=== PATIENT | female | born 1935 | race Caucasian/White ===

== ENCOUNTER → 2016-09-10 | Outpatient (CLI) | payer OTHER ==
[~2016-09-10] VITALS: Ht 142.2 cm; Wt 56.7 kg
[~2016-09-10] MED LIST: ASA81BEC PO; BISOPROLOL FUMA10 MG PO; BYSTOLIC10 MG; COZAAR 50 MG TA50 M2 PO; COZAAR100 MG PO; K-DUR 20 MEQ T20 MEQ PO; KLOR-CON 1010 MEQ PO; MAGNESIUM400 MG PO; MOBIC15 MG PO; NORVASC10 MG PO; PERCOCET 5-3251 EACH PO; PRINIVIL20 MG PO; ROBAXIN500 MG PO; TENORMIN50 MG PO; ZIAC 5-6.25 MG1 EACH PO
--- NOTE | ~2016-09-10 | HPC ---
[facility] [address] [place] [address] PAIN MANAGEMENT CONSULTATION Name: SARAH PÉREZ Room #: REG [facility] James.#: [id number] Admission: 09/10/16 Attend Phys: Haim Monte DO Discharge: Date of : 35 Report #: [id number] THIS REPORT FOR: //name// CC: Keshawn Ureña MD [facility] Neal Perez DATE OF SERVICE: 09/10/2016 HISTORY OF PRESENT ILLNESS: The patient is a very pleasant 81-year-old female, who was seen in consultation at the request of Dr. Dawkins for evaluation of pain in left neck, arm and upper back with paresthesia in the left hand. The patient notes she had prior symptoms about 3 years ago, they are treated conservatively. Ultimately, symptoms recur 2-3 months ago without antecedent trauma and overuse. She notes pain is periodic, burning, shooting and sharp, rates anywhere from 1-10 on a 0-10 visual analog scale. She tried hydrocodone and this caused nausea, vomiting and vertigo/dizziness. Currently taking tramadol with some efficacy and ibuprofen over the counter. She notes medications and heating pad do afford some relief. REVIEW OF SYSTEMS: Complete review of systems attached to chart and gone over with the patient, is , seen in the company of her who is supportive. Does not smoke, drink alcohol to excess. History of hypertension treated with amlodipine, atenolol and losartan. Otherwise, she has enjoyed remarkably good health. Prior colon surgery in 2000 and cholecystectomy in 1996. She is retired nanny, has been retired for 15 years. Pain impact score averages about 5 for all indices queried. The only other history is the prior cervical radicular symptoms about three years ago. DIAGNOSTIC STUDIES: Include MRI of the left shoulder from 03/06/2013, at that time, there was probable degenerative signal within the superior glenoid labrum, but no discrete tear was noted. There are no diagnostic studies of the cervical spine. PHYSICAL EXAMINATION: GENERAL: Reveals a pleasant 81-year-old female, 5 feet 8 and 125 pounds, BMI is 28 kilograms per meter squared, blood pressure is 136/76, pulse 73 and respirations 14. NEUROLOGIC: Cranial 2-12 are grossly intact. HEENT: Pupils are equal and reactive to light and accommodation. Extraocular muscles are intact. She has some subjective vertigo. No nystagmus is noted. Thyroid is enlarged, no nodules are noted. NECK: Cervical range of motion is limited with grossly positive limits radiating to left. Hand grasp is modestly diminished on the left compared to the right, subjective paresthesia in the left hand. Peripheral pulses are good. [address] [address] PAIN MANAGEMENT CONSULTATION Name: SARAH PÉREZ Room #: REG [facility] Dowell#: [id number] Admission: 09/10/16 Attend Phys: Haim Monte DO Discharge: Date of : 35 Report #: [id number] Tinel's is negative. Deep tendon reflexes are slightly diminished on left for biceps and brachioradialis. HEART: Regular and rhythmical with a 1-2/6 systolic ejection murmur. LUNGS: Clear to auscultation. ABDOMEN: Unremarkable. EXTREMITIES: Lower extremity strength is symmetric. Gait is tandem. Lower extremity strength is preserved. Skin integument is intact. ASSESSMENT: Symptomatic cervical radiculopathy by clinical exam, history of hypertension, well controlled with current medications. RECOMMENDATION: We will seek authorization for fluoroscopic-guided cervical epidural injection at C7-T1. We will start the patient on Meloxicam 15 mg 1 a day. Discontinue [id number]-[id number] anti-inflammatories. Continued tramadol and/or Tylenol for pain. If the interventional therapy does not afford dramatic relief, we will need an MRI of the cervical spine to rule out any surgical correctable pathology. Thank you for allowing me to participate in this patient's care. I will keep you abreast of her progress. <ELECTRONICALLY SIGNED> By: Haim Monte DO 09/16/16 1031 [id number] Haim Monte DO /nt
[2016-09-10 11:31] VITALS: BP 156/76
== END | disposition home or self-care (01) ==
LOC: PAIN 07:22
DX: M54.12 Radiculopathy, cervical region (principal); I10 Essential (primary) hypertension; Z90.49 Acquired absence of other specified parts of digestive tract

== ENCOUNTER 2016-09-17 09:20 | Emergency (ER) | payer OTHER ==
[~2016-09-17] VITALS: Ht 152.4 cm; Wt 56.7 kg
--- NOTE | ~2016-09-17 | EKG ---
[address] [place] [employer] [place] [address] ELECTROCARDIOGRAM REPORT Name: BETOSARAH Sánchez [facility] [id number] Admission: 09/17/16 Attend Phys: Discharge: 09/17/16 Date of : 35 Report #: [id number] THIS REPORT FOR: //name// [facility] ED Test Date: 2016-09-17 Test Time: 09:26:51 Pat Name: SARAH PÉREZ Department: Room: Gender: F Hypertrichologist: [id number] : 1935 Requested By: Rod De La Cruz Order Number: [id number] MD: Ashutosh Meneses Measurements Intervals [place] Rate: 83 P: 59 ID: [id number] QRS: -16 QRSD: 86 T: 50 QT: 347 QTc: 408 Interpretive Statements Sinus rhythm Left ventricular hypertrophy No previous ECG available for comparison Electronically Signed On 09-17-2016 16:47:25 [employer] by Ashutosh Meneses [email or web address] <ELECTRONICALLY SIGNED> By: Ashutosh Meneses MD 09/17/16 1647 0926 09 Ashutosh Meneses MD /CONRADO
[~2016-09-17 09:20] MED LIST changes: -ROBAXIN500 MG PO
[2016-09-17 10:04] LABS: ABSOLUTE NEUTROPHILS 6.2 thou/uL (1.4-8.2); BASOPHILS 0.6 % (0.0-2.0); EOSINOPHILS 0.5 % (0.0-3.0); HEMATOCRIT 38.9 % (37.0-47.0); LYMPHOCYTES 11.4 % (24.0-44.0); MCH 30.2 pg (26.0-34.0); MCHC 33.5 % (28.0-37.0); MCV 90.1 fL (80.0-100.0); MONOCYTES 5.1 % (1.0-8.0); PLATELET COUNT 258 thou/uL (150-400); POLYS 82.4 % (36.0-66.0); RBC 4.32 mil/uL (4.20-5.00); RDW 13.7 % (10.5-14.5); WBC 7.5 thou/uL (4.0-11.0)
[2016-09-17 10:05] LABS: MANUAL DIFF NO
[2016-09-17 10:08] LABS: ANION GAP 11 mmol/L (7-16); BUN 13 mg/dL (7-18); CALCIUM 9.2 mg/dL (8.5-10.1); CHLORIDE 105 mmol/L (98-107); CO2 25 mmol/L (21-32); GLUCOSE 138 mg/dL (70-99); POTASSIUM 3.5 mmol/L (3.5-5.1); SODIUM 141 mmol/L (136-145)
[2016-09-17 10:22] LABS: ALBUMIN 3.7 g/dL (3.4-5.0); ALKALINE PHOSPHATASE 59 U/L (46-116); MAGNESIUM 1.7 mg/dL (1.8-2.4); NT-PRO BRAIN NAT PEPTIDE 416 pg/mL (<300); SGOT 13 U/L (15-37); SGPT 20 U/L (30-65); TOTAL BILIRUBIN 0.5 mg/dL (<0.1-1.0); TOTAL PROTEIN 7.2 g/dL (6.4-8.2); TROPONIN-I < 0.04 ng/mL (<0.04-0.07)
[2016-09-17] MEDS ORDERED: ROBAXIN500 MG PO (10:44)
== END 2016-09-17 11:11 | disposition home or self-care (01) ==
LOC: ER 09:20
PROVIDERS: Emergency Medicine
DX: R00.2 Palpitations (principal); M43.6 Torticollis; M79.602 Pain in left arm; Z88.5 Allergy status to narcotic agent; Z91.018 Allergy to other foods

== ENCOUNTER → 2017-03-25 | Outpatient (CLI) | payer OTHER ==
[~2017-03-25] MED LIST changes: +ROBAXIN500 MG PO
[2017-03-25 08:31] LABS: CREATININE 0.9 mg/dL (0.6-1.0)
== END ==
LOC: CAT 07:32
PROVIDERS: Family Medicine
DX: I72.2 Aneurysm of renal artery (principal); D17.71 Benign lipomatous neoplasm of kidney; G31.9 Degenerative disease of nervous system, unspecified

== ENCOUNTER 2017-05-22 15:08 | Emergency (ER) | payer OTHER ==
[~2017-05-22] VITALS: Ht 144.8 cm; Wt 54.4 kg
== END 2017-05-22 17:16 | disposition home or self-care (01) ==
LOC: ER 15:08
DX: S62.307A Unspecified fracture of fifth metacarpal bone, left hand, initial encounter for closed fracture (principal); I72.9 Aneurysm of unspecified site; Z90.49 Acquired absence of other specified parts of digestive tract; Z91.018 Allergy to other foods; W01.0XXA Fall on same level from slipping, tripping and stumbling without subsequent striking against object, initial encounter; Y93.89 Activity, other specified; Y92.89 Other specified places as the place of occurrence of the external cause; Y99.8 Other external cause status

== ENCOUNTER → 2017-09-02 | Outpatient (CLI) | payer OTHER ==
[~2017-09-02] MED LIST changes: +BYSTOLIC 5 MG5 M1 PO; +EDARBI80 MG PO; +TYLENOL325 MG PO
== END ==
LOC: RAD 08-27 07:46
DX: Z12.31 Encounter for screening mammogram for malignant neoplasm of breast (principal)

== ENCOUNTER 2018-02-28 19:29 | Inpatient (IN) | payer OTHER ==
[~2018-02-28] VITALS: Ht 149.9 cm; Wt 59.0 kg
[~2018-02-28 19:29] MED LIST changes: -BYSTOLIC 5 MG5 M1 PO; -EDARBI80 MG PO; -TYLENOL325 MG PO
[2018-02-28 19:45] VITALS: BP 116/72
[2018-02-28] MEDS ORDERED: EDARBI80 MG PO (19:52)
[2018-02-28] MEDS ORDERED: BYSTOLIC 5 MG5 M1 PO (19:52)
[2018-02-28 20:28] LABS: ABSOLUTE NEUTROPHILS 13.1 thou/uL (1.4-8.2); BASOPHILS 0.8 % (0.0-2.0); EOSINOPHILS 1.7 % (0.0-3.0); HEMATOCRIT 37.5 % (37.0-47.0); HEMOGLOBIN 12.7 gm/dL (12.0-15.0); LYMPHOCYTES 8.5 % (24.0-44.0); MCH 30.5 pg (26.0-34.0); MCHC 33.8 g/dL (28.0-37.0); MCV 90.1 fL (80.0-100.0); MONOCYTES 5.6 % (1.0-8.0); PLATELET COUNT 295 thou/uL (150-400); POLYS 83.4 % (36.0-66.0); RBC 4.16 mil/uL (4.20-5.00); RDW 13.8 % (10.5-14.5); WBC 15.7 thou/uL (4.0-11.0)
[2018-02-28 20:29] LABS: CALCIUM 9.1 mg/dL (8.5-10.1); CREATININE 1.1 mg/dL (0.6-1.0); POTASSIUM 3.9 mmol/L (3.5-5.1)
[2018-02-28 20:30] LABS: URINE BILIRUBIN NEGATIVE (Negative); URINE BLOOD 2+ (Negative); URINE CLARITY CLEAR; URINE COLOR YELLOW; URINE GLUCOSE-RANDOM* NEGATIVE (Negative); URINE KETONES NEGATIVE (Negative); URINE LEUKOCYTES-REFLEX NEGATIVE (Negative); URINE NITRITE-REFLEX NEGATIVE (Negative); URINE PROTEIN (DIPSTICK) NEGATIVE (Negative); URINE SPECIFIC GRAVITY >= 1.030 (1.005-1.035); URINE UROBILINOGEN 0.2 E.U./dl (0.2-1.0)
[2018-02-28 20:35] LABS: ALBUMIN 3.9 g/dL (3.4-5.0); TOTAL BILIRUBIN 0.3 mg/dL (<0.1-1.0); TOTAL PROTEIN 7.6 g/dL (6.4-8.2)
[2018-02-28 20:39] LABS: AMORPHOUS URATES Moderate /LPF (None Seen); BACTERIA-REFLEX None Seen /HPF (None Seen); CASTS None Seen /LPF (None Seen); MUCUS 4-6 Moderate strn/LPF (None Seen); SQUAMOUS 0-3 Few /LPF (0-3); URINE RBC 3-10 Few /HPF (0-2); URINE WBC-REFLEX 6-15 Few /HPF (0-5)
[2018-02-28 23:19] VITALS: BP 151/70
[2018-02-28 23:47] VITALS: BP 153/61
[2018-03-01 04:00] VITALS: BP 148/62
[2018-03-01 05:24] LABS: HEMATOCRIT 36.6 % (37.0-47.0); HEMOGLOBIN 12.2 gm/dL (12.0-15.0); MCH 30.2 pg (26.0-34.0); MCHC 33.2 g/dL (28.0-37.0); RBC 4.02 mil/uL (4.20-5.00); RDW 14.1 % (10.5-14.5); WBC 11.4 thou/uL (4.0-11.0)
[2018-03-01 05:40] LABS: CALCIUM 8.5 mg/dL (8.5-10.1); CREATININE 0.9 mg/dL (0.6-1.0); POTASSIUM 3.9 mmol/L (3.5-5.1)
[2018-03-01 07:20] VITALS: BP 118/56
[2018-03-01 15:45] VITALS: BP 121/55
[2018-03-01] MEDS ORDERED: TYLENOL325 MG PO (18:14)
[2018-03-01 18:44] VITALS: BP 121/55
== END 2018-03-01 19:30 | disposition home or self-care (01) | DRG 690 ==
LOC: ER 19:29 → EROBS 21:50 → 4W 21:50
PROVIDERS: Emergency Medicine; Nurse Practitioner Family
DX: N12 Tubulo-interstitial nephritis, not specified as acute or chronic (principal); N13.30 Unspecified hydronephrosis; D17.71 Benign lipomatous neoplasm of kidney; I10 Essential (primary) hypertension; Z98.62 Peripheral vascular angioplasty status; Z87.440 Personal history of urinary (tract) infections; Z90.49 Acquired absence of other specified parts of digestive tract; Z79.899 Other long term (current) drug therapy; Z88.5 Allergy status to narcotic agent; Z91.018 Allergy to other foods
CPT/HCPCS: 10045

== ENCOUNTER → 2018-03-08 | Outpatient (CLI) | payer OTHER ==
[~2018-03-08] MED LIST changes: +BYSTOLIC 5 MG5 M1 PO; +EDARBI80 MG PO; +TYLENOL325 MG PO
== END ==
LOC: CAT 09:17
DX: R10.9 Unspecified abdominal pain (principal)

== ENCOUNTER → 2018-09-02 | Outpatient (CLI) | payer OTHER | LOC: RAD 01:29 | DX: Z12.31 Encounter for screening mammogram for malignant neoplasm of breast (principal) ==

== ENCOUNTER 2019-03-03 20:39 | Emergency (ER) | payer OTHER ==
[~2019-03-03] VITALS: Ht 149.9 cm; Wt 59.0 kg
[2019-03-03 21:07] LABS: URINE BILIRUBIN NEGATIVE (Negative); URINE BLOOD 3+ (Negative); URINE CLARITY CLEAR; URINE COLOR YELLOW; URINE GLUCOSE-RANDOM* NEGATIVE (Negative); URINE KETONES NEGATIVE (Negative); URINE LEUKOCYTES-REFLEX NEGATIVE (Negative); URINE NITRITE-REFLEX NEGATIVE (Negative); URINE PROTEIN (DIPSTICK) 1+ (Negative); URINE SPECIFIC GRAVITY 1.025 (1.005-1.035); URINE UROBILINOGEN 0.2 E.U./dl (0.2-1.0)
[2019-03-03] MEDS ORDERED: CARDIZEM CD240 MG PO (21:12)
[2019-03-03] MEDS ORDERED: BYSTOLIC20 MG PO (21:12)
[2019-03-03] MEDS ORDERED: EDARBI80 MG PO (21:13)
[2019-03-03] MEDS ORDERED: ST. JOSEPH ASPI81 MG PO (21:14)
[2019-03-03 21:31] LABS: CASTS None Seen /LPF (None Seen); CRYSTALS None Seen /LPF (None Seen); SQUAMOUS 0-3 Few /LPF (0-3); URINE RBC >20 Many /HPF (0-2)
[2019-03-03 21:32] LABS: BACTERIA-REFLEX 1-9 Few /HPF (None Seen); URINE WBC-REFLEX 0-5 Rare /HPF (0-5)
[2019-03-03 21:36] LABS: ABSOLUTE NEUTROPHILS 10.1 thou/uL (1.4-8.2); BASOPHILS 0.6 % (0.0-2.0); EOSINOPHILS 0.9 % (0.0-3.0); HEMATOCRIT 40.4 % (37.0-47.0); HEMOGLOBIN 13.4 gm/dL (12.0-15.0); LYMPHOCYTES 9.3 % (24.0-44.0); MCH 29.9 pg (26.0-34.0); MCHC 33.1 g/dL (28.0-37.0); MCV 90.3 fL (80.0-100.0); MONOCYTES 6.8 % (1.0-8.0); PLATELET COUNT 268 thou/uL (150-400); POLYS 82.4 % (36.0-66.0); RBC 4.48 mil/uL (4.20-5.00); RDW 13.7 % (10.5-14.5); WBC 12.2 thou/uL (4.0-11.0)
[2019-03-03 21:59] LABS: CALCIUM 9.5 mg/dL (8.5-10.1); CREATININE 1.2 mg/dL (0.6-1.0)
[2019-03-03 22:07] LABS: ALBUMIN 3.9 g/dL (3.4-5.0); TOTAL BILIRUBIN 0.3 mg/dL (<0.1-1.0); TOTAL PROTEIN 7.8 g/dL (6.4-8.2)
[2019-03-03] MEDS ORDERED: TYLENOL EXTRA500 MG PO (23:30)
[2019-03-04 00:06] VITALS: BP 151/70
== END 2019-03-04 00:11 | disposition home or self-care (01) ==
LOC: ER 20:39
PROVIDERS: Emergency Medicine
DX: N28.89 Other specified disorders of kidney and ureter (principal); R10.9 Unspecified abdominal pain; Z88.5 Allergy status to narcotic agent; Z91.018 Allergy to other foods; Z90.49 Acquired absence of other specified parts of digestive tract; Z98.890 Other specified postprocedural states

== ENCOUNTER → 2019-09-04 | Outpatient (CLI) | payer OTHER ==
[~2019-09-04] MED LIST changes: +BYSTOLIC20 MG PO; +CARDIZEM CD240 MG PO; +ST. JOSEPH ASPI81 MG PO; +TYLENOL EXTRA500 MG PO
== END ==
LOC: RAD 13:00 → BC 20:48
DX: Z12.31 Encounter for screening mammogram for malignant neoplasm of breast (principal)

== ENCOUNTER → 2019-09-15 | Outpatient (CLI) | payer OTHER | LOC: CAT 08:18 | DX: N28.1 Cyst of kidney, acquired (principal); K76.89 Other specified diseases of liver; N26.1 Atrophy of kidney (terminal); N13.30 Unspecified hydronephrosis; I77.811 Abdominal aortic ectasia; I70.0 Atherosclerosis of aorta; Z98.890 Other specified postprocedural states; Z90.49 Acquired absence of other specified parts of digestive tract ==

== ENCOUNTER → 2019-12-27 | Outpatient (CLI) | payer OTHER | LOC: SJCVC 11:30 | DX: I10 Essential (primary) hypertension (principal); I47.1 Supraventricular tachycardia; F41.9 Anxiety disorder, unspecified; F32.9 Major depressive disorder, single episode, unspecified; E78.5 Hyperlipidemia, unspecified; Z90.49 Acquired absence of other specified parts of digestive tract; Z79.899 Other long term (current) drug therapy ==

== ENCOUNTER 2020-07-07 20:35 | Emergency (ER) | payer OTHER ==
[~2020-07-07] VITALS: Ht 142.2 cm; Wt 56.7 kg
[2020-07-07 23:24] LABS: ABSOLUTE NEUTROPHILS 6.8 thou/uL (1.4-8.2); BASOPHILS 0.7 % (0.0-2.0); EOSINOPHILS 1.3 % (0.0-3.0); HEMATOCRIT 38.2 % (37.0-47.0); HEMOGLOBIN 13.2 gm/dL (12.0-15.0); LYMPHOCYTES 18.3 % (24.0-44.0); MCH 31.1 pg (26.0-34.0); MCHC 34.6 g/dL (28.0-37.0); MCV 89.9 fL (80.0-100.0); MONOCYTES 7.6 % (1.0-8.0); PLATELET COUNT 257 thou/uL (150-400); POLYS 72.1 % (36.0-66.0); RBC 4.25 mil/uL (4.20-5.00); RDW 14.1 % (10.5-14.5); WBC 9.4 thou/uL (4.0-11.0)
[2020-07-07 23:31] LABS: ANION GAP 12 mmol/L (7-16); BUN 9 mg/dL (7-18); CALCIUM 8.7 mg/dL (8.5-10.1); CHLORIDE 110 mmol/L (98-107); CO2 25 mmol/L (21-32); GLUCOSE 95 mg/dL (74-106); POTASSIUM 3.3 mmol/L (3.5-5.1); SODIUM 147 mmol/L (136-145)
[2020-07-07 23:38] LABS: TROPONIN-I <0.06 ng/mL (<0.06)
[2020-07-08 01:13] VITALS: BP 147/57
--- NOTE | 2020-07-08 07:56 | EKG ---
[facility] [place] [address] [place] [address] ELECTROCARDIOGRAM REPORT Name: SARAH PÉREZ Room #: [facility]#: [id number] Admission: 07/07/20 Attend Phys: Discharge: 07/08/20 Date of : 35 Report #: [id number] THIS REPORT FOR: cc: Neal Dawkins James A. DO Lundgren, Craig H. MD [facility] ~ THIS REPORT FOR: //name// [facility] ED Test Date: 2020-07-07 Test Time: 23:29:14 Pat Name: SARAH PÉREZ Department: Room: Gender: F Motivational Speaker: kelsi : 1935 Requested By: Sergio Lucas Order Number: [id number] MD: Varghese Medellin Measurements Intervals [place] Rate: 59 P: 60 VA: 194 QRS: -15 QRSD: 105 T: 9 QT: 418 QTc: 414 Interpretive Statements Sinus bradycardia Left ventricular hypertrophy Poor R wave progression Nonspecific T wave abnormality Compared to ECG 09/17/2016 09:26:[address] change in the ST and T wave segments Electronically Signed On 07-08-2020 7:56:37 [employer] by Varghese Medellin [email or web address] <ELECTRONICALLY SIGNED> By: Varghese Medellin MD, [facility] 07/08/20 [id number] Varghese Medellin MD, [facility] /EPI
== END 2020-07-08 01:13 | disposition home or self-care (01) ==
LOC: ER 20:35
PROVIDERS: Emergency Medicine
DX: I10 Essential (primary) hypertension (principal); Z79.899 Other long term (current) drug therapy; Z79.82 Long term (current) use of aspirin; Z88.5 Allergy status to narcotic agent; Z91.018 Allergy to other foods

== ENCOUNTER → 2020-07-10 | Outpatient (CLI) | payer OTHER | LOC: SJCVCIMAG 08:16 | PROVIDERS: ATTEND Internal Medicine Cardiovascular Disease | DX: I10 Essential (primary) hypertension (principal); D17.71 Benign lipomatous neoplasm of kidney; N28.1 Cyst of kidney, acquired; I47.1 Supraventricular tachycardia; F41.9 Anxiety disorder, unspecified; F32.9 Major depressive disorder, single episode, unspecified; Z79.899 Other long term (current) drug therapy ==

== ENCOUNTER → 2020-09-04 | Outpatient (CLI) | payer OTHER | LOC: BC 12:44 | PROVIDERS: ATTEND Family Medicine | DX: Z12.31 Encounter for screening mammogram for malignant neoplasm of breast (principal) ==

== ENCOUNTER → 2020-10-08 | Outpatient (CLI) | payer OTHER | LOC: SJCVCIMAG 08:32 | PROVIDERS: ATTEND Internal Medicine Cardiovascular Disease | DX: I08.3 Combined rheumatic disorders of mitral, aortic and tricuspid valves (principal); I11.9 Hypertensive heart disease without heart failure; E78.00 Pure hypercholesterolemia, unspecified; I47.9 Paroxysmal tachycardia, unspecified; F41.9 Anxiety disorder, unspecified; F32.9 Major depressive disorder, single episode, unspecified; E78.5 Hyperlipidemia, unspecified; Z90.49 Acquired absence of other specified parts of digestive tract; Z95.828 Presence of other vascular implants and grafts; Z88.8 Allergy status to other drugs, medicaments and biological substances; Z79.82 Long term (current) use of aspirin; Z79.899 Other long term (current) drug therapy; Z82.49 Family history of ischemic heart disease and other diseases of the circulatory system ==

== ENCOUNTER → 2021-09-08 | Outpatient (CLI) | payer OTHER | LOC: BC 10:01 | PROVIDERS: ATTEND Family Medicine | DX: Z12.31 Encounter for screening mammogram for malignant neoplasm of breast (principal) ==

== ENCOUNTER 2021-10-07 14:55 | Emergency (ER) | payer OTHER ==
[~2021-10-07] VITALS: Ht 149.9 cm; Wt 54.4 kg
[2021-10-07 15:11] LABS: URINE BILIRUBIN NEGATIVE (Negative); URINE BLOOD 2+ (Negative); URINE CLARITY CLEAR; URINE COLOR YELLOW; URINE GLUCOSE-RANDOM* NEGATIVE (Negative); URINE KETONES NEGATIVE (Negative); URINE LEUKOCYTES-REFLEX TRACE (Negative); URINE NITRITE-REFLEX NEGATIVE (Negative); URINE PROTEIN (DIPSTICK) TRACE (Negative); URINE SPECIFIC GRAVITY >= 1.030 (1.005-1.035); URINE UROBILINOGEN 0.2 E.U./dl (0.2-1.0)
[2021-10-07 15:18] LABS: ABSOLUTE NEUTROPHILS 14.2 thou/uL (1.4-8.2); BASOPHILS 0.4 % (0.0-2.0); EOSINOPHILS 0.6 % (0.0-3.0); HEMATOCRIT 37.7 % (37.0-47.0); HEMOGLOBIN 12.5 gm/dL (12.0-15.0); LYMPHOCYTES 5.1 % (24.0-44.0); MCH 30.2 pg (26.0-34.0); MCHC 33.1 g/dL (28.0-37.0); MCV 91.2 fL (80.0-100.0); MONOCYTES 2.3 % (1.0-8.0); PLATELET COUNT 312 thou/uL (150-400); POLYS 91.6 % (36.0-66.0); RBC 4.14 mil/uL (4.20-5.00); RDW 14.3 % (10.5-14.5); WBC 15.5 thou/uL (4.0-11.0)
[2021-10-07 15:19] LABS: BACTERIA-REFLEX 1-9 Few /HPF (None Seen); CASTS None Seen /LPF (None Seen); CRYSTALS None Seen /LPF (None Seen); SQUAMOUS 0-3 Few /LPF (0-3); URINE RBC 3-10 Few /HPF (NONE SEEN); URINE WBC-REFLEX 0-5 Rare /HPF (0-5)
[2021-10-07] MEDS ORDERED: SPIRONOLACTONE25 MG PO (15:23)
[2021-10-07] MEDS ORDERED: WELLBUTRIN SR150 MG PO (15:23)
[2021-10-07 15:25] LABS: CREATININE 1.1 mg/dL (0.6-1.0)
[2021-10-07 15:32] LABS: ALBUMIN 3.9 g/dL (3.4-5.0); TOTAL BILIRUBIN 0.3 mg/dL (0.2-1.0); TOTAL PROTEIN 7.5 g/dL (6.4-8.2)
[2021-10-07 15:38] LABS: POTASSIUM 4.7 mmol/L (3.5-5.1)
[2021-10-07 16:32] VITALS: BP 143/60
== END 2021-10-07 16:32 | disposition home or self-care (01) ==
LOC: ER 14:55
PROVIDERS: Emergency Medicine
DX: N20.0 Calculus of kidney (principal); Z90.49 Acquired absence of other specified parts of digestive tract; Z98.890 Other specified postprocedural states; Z79.82 Long term (current) use of aspirin; Z79.899 Other long term (current) drug therapy; Z88.5 Allergy status to narcotic agent; Z91.018 Allergy to other foods

== ENCOUNTER → 2021-10-22 | Outpatient (CLI) | payer BC ==
[~2021-10-22] MED LIST changes: +SPIRONOLACTONE25 MG PO; +WELLBUTRIN SR150 MG PO
== END ==
LOC: SJCVC 13:42
PROVIDERS: ATTEND Internal Medicine Cardiovascular Disease
DX: I10 Essential (primary) hypertension (principal); E78.00 Pure hypercholesterolemia, unspecified; I38 Endocarditis, valve unspecified; D17.71 Benign lipomatous neoplasm of kidney; I47.1 Supraventricular tachycardia; I34.1 Nonrheumatic mitral (valve) prolapse; F41.9 Anxiety disorder, unspecified; F32.A Depression, unspecified; Z82.79 Family history of other congenital malformations, deformations and chromosomal abnormalities; Z88.8 Allergy status to other drugs, medicaments and biological substances; Z79.82 Long term (current) use of aspirin; Z79.899 Other long term (current) drug therapy